=== PATIENT | female | born 1980 | race Caucasian/White ===

== ENCOUNTER → 2020-04-13 13:50 | Outpatient (BNVA) | payer OTHER, SELFPAY | PROVIDERS: Family Provider Family Medicine; PCP Family Medicine; Referring Provider Family Medicine; Visit Provider Specialist | DX: G56.01 Carpal tunnel syndrome, right upper limb (principal); R20.2 Paresthesia of skin | CPT/HCPCS: 95910 ==

== ENCOUNTER 2020-10-30 14:44 | Outpatient (CLI) | payer OTHER, SELFPAY ==
--- NOTE | 2020-10-30 14:51 | MM_ITS ---
WS: [id number] SCREENING DIGITAL MAMMOGRAM WITH CAD HISTORY: SCREENING COMPARISON: None available. Bilateral CC and MLO views submitted. Computer aided detection analyzed. Breast composition: There are scattered areas of fibroglandular density. Focal ill-defined asymmetry around 12:00 in the anterior RIGHT breast. Needs further evaluation. Otherwise no suspicious findings or calcifications. MM/[place] [id number] IMPRESSION: BI-RADS: 0-Incomplete: Need additional imaging evaluation FOLLOW UP: Need Additional Imaging RIGHT breast: Spot compression views (CC and MLO). True ML. Ultrasound to follo w if abnormality persists.
== END 2020-10-30 14:45 | disposition home or self-care (01) ==
LOC: RADSHAW 14:46
PROVIDERS: Family Provider Family Medicine; PCP Family Medicine; Visit Provider Family Medicine
DX: Z12.31 Encounter for screening mammogram for malignant neoplasm of breast (principal); N64.89 Other specified disorders of breast
CPT/HCPCS: 77067

== ENCOUNTER 2020-11-07 11:57 | Outpatient (CLI) | payer OTHER, SELFPAY ==
--- NOTE | 2020-11-07 12:00 | MM_ITS ---
WS: [id number] ADDITIONAL VIEWS RIGHT BREAST RIGHT breast ultrasound, limited HISTORY: ABNORMAL MAMMOGRAM COMPARISON: 10/30/2020 Compression views right CC and MLO projection. True ML also submitted. Mildly prominent asymmetry in the anterior RIGHT breast. No suspicious masses persist or distortion. RIGHT breast ultrasound, limited. Ultrasound directed to the areolar. There is no discrete mass identified, no shadowing, no cystic or solid changes. MM/[place] [id number] IMPRESSION: BI-RADS: 2-Benign FOLLOW-UP: 1 Year Follow-up
--- NOTE | 2020-11-07 12:07 | US_ITS ---
WS: [id number] ADDITIONAL VIEWS RIGHT BREAST RIGHT breast ultrasound, limited HISTORY: ABNORMAL MAMMOGRAM COMPARISON: 10/30/2020 Compression views right CC and MLO projection. True ML also submitted. Mildly prominent asymmetry in the anterior RIGHT breast. No suspicious masses persist or distortion. RIGHT breast ultrasound, limited. Ultrasound directed to the areolar. There is no discrete mass identified, no shadowing, no cystic or solid changes. US/US breast RT limited* [id number] IMPRESSION: BI-RADS: 2-Benign FOLLOW-UP: 1 Year Follow-up
== END 2020-11-07 11:58 | disposition home or self-care (01) ==
LOC: RADSHAW 11:58
PROVIDERS: Family Provider Family Medicine; PCP Family Medicine; Visit Provider Family Medicine
DX: R92.8 Other abnormal and inconclusive findings on diagnostic imaging of breast (principal)
CPT/HCPCS: 76642; 77065

== ENCOUNTER 2021-01-26 21:56 | Observation (INO) | payer OTHER, SELFPAY ==
[2021-01-26 22:03] VITALS: BP 116/80; PULSE 70; RESP 18; TEMP 36.8; O2SAT 98; BMI 26.9
--- NOTE | 2021-01-26 22:20 | XRR_ITS ---
PROCEDURE INFORMATION: Exam: XR Chest Exam date and time: 01/26/2021 10:22 PM Age: 40 years old Clinical indication: Chest pain; Additional info: Cp TECHNIQUE: Imaging protocol: XR of the chest. Views: 1 view. COMPARISON: No relevant prior studies available. FINDINGS: Lungs: The lungs are clear. Pleural spaces: Unremarkable. No pleural effusion. No pneumothorax. Heart/Mediastinum: Unremarkable. No cardiomegaly. Bones/joints: Unremarkable. XR/XR chest 1V portable [id number] IMPRESSION: No acute cardiopulmonary abnormality.
--- NOTE | 2021-01-26 22:20 | ECG_ITS ---
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
[2021-01-26] MEDS: aspirin 325 mg Tablet PO (22:26)
[2021-01-26] MEDS: ticagrelor 90 mg Tablet 180 MG PO (22:26)
[2021-01-26] MEDS: sodium chloride 0.9% 1,000 ML 999 ML IV (22:27)
[2021-01-26] MEDS: heparin 5,000 unit/mL INJ 1 mL 4000 UNIT IVP (22:27)
[2021-01-26 22:37] LABS: Basophils # 0.1 10^3/uL (0.0-0.1); Basophils % 0.5 %; Eosinophils # 0.2 10^3/uL (0.0-0.8); Eosinophils % 1.9 %; Hematocrit 40.6 % (37.0-47.0); Hemoglobin 13.6 g/dL (11.5-15.3); Lymphocytes # 2.3 10^3/uL (0.8-4.8); Lymphocytes % 24.6 %; Mean Corpuscular HGB Conc 33.5 g/dL (30.0-36.0); Mean Corpuscular Hemoglobin 28.8 pg (28.0-34.0); Mean Corpuscular Volume 85.8 fL (81-99); Mean Platelet Volume 11.1 fL (7.4-10.4); Monocytes # 0.8 10^3/uL (0.2-0.9); Monocytes % 8.3 %; Neutrophils # 6.09 10^3/uL (1.8-7.7); Neutrophils % 64.4 %; Nucleated Red Blood Cells % 0 %; Platelet Count 270 10^3/cmm (130-400); Red Blood Count 4.73 10^6/uL (4.1-5.3); Red Cell Distribution Width 11.7 % (12.1-15.1); White Blood Count 9.5 10^3/uL (4.0-10.0)
[2021-01-26 22:38] VITALS: BP 133/83; PULSE 99; RESP 17; O2SAT 97
[2021-01-26] MEDS: ondansetron 2 mg/ML SDV 2 mL 4 MG IVP (22:54)
[2021-01-26 22:57] VITALS: RESP 19; O2SAT 97
[2021-01-26] MEDS: morphine 4 mg/mL SDV 1 mL IVP (22:57)
--- NOTE | 2021-01-26 22:57 | XACV_ITS ---
Exam Room: [facility] Ht: 183 cm Wt: 73 kg BSA: 1.93 m2 Gender: Female : 1980 Exam Priority: Routine Procedure(s): Procedure Description: Diagnostic procedure Procedure Description: Left Heart Catheterization Diagnostic Cath Status: Emergency Diagnostic Findings * No disease noted in the Left Main, Left Anterior Descending, Right, or Circumflex coronary arteries. * Coronary angiography shows right dominance. PCI Status: Emergency Conclusions 1. Indication for 2. angiogram 3. acute coronary syndrome. 4. Possible stress-induced cardiomyopathy. 5. No disease noted in the Left Main, Left Anterior Descending, Right, or Circumflex coronary arteries. 6. The apex, mid posterior, mid septum, anterolateral, mid inferior mcnamara are hypokinetic. 7. All other visualized mcnamara normal. 8. Normal left ventricular systolic function. Ejection fraction of 50%. Recommendations * Continue current medical management and risk factor modification. Ventriculography Ejection Fraction: 50.0 % Left Ventriculography Findings: * Mild reduced LV function 50% with anterior apical and i inferoapical hypokinesis. Pressures Phase:Rest AO : / ( 37 ) @ 6:28:47 AM 207 / 82 ( 149 ) @ 6:28:47 AM 130 / 57 ( 99 ) @ 6:28:47 AM 137 / 52 ( 97 ) @ 6:28:47 AM LV : 153 / 8 / 23 @ 6:28:47 AM 156 / 7 / 19 @ 6:28:47 AM 156 / 48 / 79 @ 6:28:47 AM 164 / 9 / 33 @ 6:28:47 AM Valves Phase:DefaultPhase AV : 34.0 @ 11:28:47 AM AV Mean Gradient: 22.0 @ 11:28:47 AM Clinical Evaluation EBL: 5mL-10mL Procedural Details Procedure Consent Obtained. Admit Source: Emergency department. Identified patient by full name and date of as verbalized by the patient/guarantor. Does the consent match the physician's order: N/A Emergent. Accurate & Complete Informed Consent: N/A Emergent. Inpatient/Outpatient History & Physical on Chart: N/A Emergent. If H&P is completed, is and addenduem needed: N/A Emergent; If yes, is the addendum complete: N/A Emergent. The risks, benefits, and alternatives of sedation and/or procedure were discussed by physician. The patient agrees to continue. Procedure started. Physician arrived. IV Site on Arrival: 20 gauge in the right anticubital. IV Site on Arrival: 20 gauge in the left anticubital. IV Fluids: 0.9% NaCl at KVO. 0 mL infused prior to concrete laborer. Oxygen started at 2liters/min via nasal canula. right radial was prepped with chloroprep then draped in the usual sterile fashion. bilateral groins was prepped with chloroprep then draped in the usual sterile fashion. Baseline sample Acquired. HR: 108 BPM. Physician notified. Physician scrubbed in. Lidocaine 1% infiltrated to the right radial. Arterial access obtained. A 5 togolese TIG catheter in over wire. Wire removed. Hand injection through catheter performed. Catheter inserted over the glide wire. Multiple views taken of left coronary artery. Catheter redirected to the RCA. Catheter out. A 5 togolese Angled Pig catheter in over wire. EDP Sample taken: LV 153/8,23; HR: 106 BPM; SpO2: 93%. LV gram performed in COSBY @ 10 mL/second for a total of 30 mL. EDP Sample taken: LV 156/48,79; HR: 109 BPM; SpO2: 98%. Pullback taken: LV 164/9,33; AO 130/57(99); Mean: 22mmHg, Peak to Peak: 34mmHg, SEP: 29sec/min; HR: 108 BPM; SpO2: 98%. Catheter out. Patient family updated. Physician scrubbed out. TR band placed. Hemostasis obtained. A TR Band was successful obtaining hemostatsis at the Right Radial artery insertion site. PCI Indication: STEMI. Post-op diagnosis: STEMI. Complications: N/A. Estimated blood loss: 5mL-10mL. Procedure completed. Medication's Wasted: Nitro = 49.4 mg. Medication's Wasted: Heparin = 1000 units. Medication's Wasted: Lidocaine 1% = 18 mg. Total IV fluids: 27 mL. Post Procedure: Pulses reassessed and unchanged. [facility] Clinical Fraility Score: 3: Managing Well. Shale Planer Operator Indications: ACS <= 24 hours. Chest Pain Symptom Assessment: Atypical Angina. Cardiovascular Instability: No. Current diagnosis: NSTEMI. Patient transferred by bed to 1st floor. Vital chart was stopped. Access Site Site: Right Radial artery Sheath Size: 6 Fr Hemostasis Method: TR Band Hemostasis Success: Successful Procedure Medications Start: 11:11 PM Stop: 11:11 PM Medication: Versed Amount: 1 mg Route: I.V. Start: 11:11 PM Stop: 11:11 PM Medication: Fentanyl Amount: 50 mcg Start: 11:13 PM Medication: Brilinta Amount: 180 mg Route: P.O. Start: 11:13 PM Medication: Aspirin Amount: 325 mg Route: P.O. Start: 11:13 PM Medication: Heparin Amount: 4000 units Route: I.V. Start: 11:14 PM Stop: 11:14 PM Medication: Versed Amount: 1 mg Route: I.V. Start: 11:14 PM Stop: 11:14 PM Medication: Fentanyl Amount: 50 mcg Start: 11:16 PM Stop: 11:16 PM Medication: Nitrogylcerin Amount: 200 mcg Route: I.A. Start: 11:18 PM Stop: 11:18 PM Medication: Nitrogylcerin Amount: 400 mcg Route: I.A. I, the attending physician, have reviewed and verified all procedure medications. Yes, all medications given per verbal order History/Risk Factors Hypertension: No Dyslipidemia: No Peripheral Arterial Disease (PAD): No Myocardial Infarction (AK): No Obesity: No Renal Disease: No Prior Interventions PCI: No CABG: No Valve Surgery: No Report Signatures Finalized by Judy Baker MD on 02/06/2021 09:11 PM
[2021-01-26 22:58] LABS: Troponin(5th) Baseline 7 ng/L (0-10)
--- NOTE | 2021-01-26 23:00 | P.HP_ITS ---
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 Patient was sitting in the bed reading a book all of a sudden she started having chest pressure, When it did not relieve she decided to come to the ER. Twelve-lead EKG was suggestive of inferior lateral ST elevation. I was informed by capacitor pack press operator. I saw the patient immediately in the ER when I saw her chest pain has reduced from 8/10 to 2 out of 10. She is a non-smoker nondiabetic denies any recreational drug abuse. She denies more than usual stress. She denies any viral illnesses. Character of the chest pain was more crushing. Medications/Allergies Home Medications Medication Instructions Recorded Confirmed Last Taken Type citalopram 10 mg tablet 10 mg PO DAILY 11/08/19 01/27/21 01/26/21 08:00 History Allergies Allergy/AdvReac Type Severity Reaction Status Date / Time No Known Allergies Allergy Verified 04/13/20 13:58 PFSH Acute PFSH: Social History Smoking and tobacco status: never smoked Alcohol intake: never Vitals/I&O/Wt Last Vital Signs Temp 98.2 F 01/26/21 22:03 Pulse 99 01/26/21 22:38 Resp 19 H 01/26/21 22:57 BP 133/83 01/26/21 22:38 Pulse Ox 97 01/26/21 22:57 Weight last 48 hrs Weight 162 lb Physical Exam Narrative: EXAM NARRATIVE: GENERAL: Patient is alert, awake and oriented x3. NECK: No jugular vein distension. HEENT: No cyanosis. No icterus. No pallor. HEART: Regular S1 and S2. No murmur, rub or gallop. LUNGS: Clear to auscultate bilaterally. ABDOMEN: Soft, nontender and nondistended. Positive bowel sounds. No guarding, rebound or tenderness. CENTRAL NERVOUS SYSTEM: Grossly nonfocal. EXTREMITIES: Lower extremities without edema bilaterally. Data : 01/27/21 02:20 01/27/21 02:20 A&P Assessment and plan (1) ST elevation ND (STEMI): Patient does not have many risk factors for coronary artery disease she is non-smoker nondiabetic however chest pain and significant ST changes inferolaterally requires further exploration with coronary angiogram. Most likely differential diagnosis will be stress-induced cardiomyopathy versus pericarditis. I have been discussed with the patient and her in detail all risk benefit and alternative for the procedure. I explained the risk for major minor bleed, urgent emergent bypass surgery, stroke, arrhythmia, . Patient understood risk like to proceed with it. Status: Acute Qualifiers: Involved coronary artery: unspecified coronary artery Qualified Code(s): I21.3 - ST elevation (STEMI) myocardial infarction of unspecified site Attestations Medical Necessity Statement*: I am not expecting her stay to cross more than 1 midnight Coding Level of Care Code New Pt Acute Information Technology Architect for Stefani Fwpablito Patient Type New Medical Decision Making Moderate Complexity Diagnoses ST elevation ND (STEMI) I21.3 Involved coronary artery: unspecified coronary artery
[2021-01-26 23:03] VITALS: BP 150/95; PULSE 98; RESP 19; TEMP 36.8; O2SAT 97
[2021-01-26 23:03] LABS: Alanine Aminotransferase 34 U/L (0-33); Albumin Level 4.3 g/dL (3.5-5.2); Alkaline Phosphatase 86 IU/L (35-105); Anion Gap 10.7 (5-19); Aspartate Amino Transferase 24 U/L (0-32); Blood Urea Nitrogen 17 mg/dL (6-20); Calcium 9.2 mg/dL (8.5-10.5); Carbon Dioxide 29 mmol/L (22-29); Chloride 103 mmol/L (98-107); Creatine Phosphokinase 101 U/L (26-192); Creatinine Clr Calc Pharmacy 92.9051; Globulin 2.6 g/dL (1.3-4.6); Glucose 161 mg/dL (65-115); NT Pro B Type Natriuretic Pept 17 pg/mL (0-125); Osmolality Calculated 293 mOsm/kg (285-295); Potassium 3.7 mmol/L (3.5-5.1); Sodium 139 mmol/L (136-145); Total Bilirubin 0.3 mg/dL (0.15-1.2); Total Protein 6.9 g/dL (6.6-8.7)
[2021-01-26 23:18] LABS: INR 1.03 (0.8-1.2)
[2021-01-26 23:33] VITALS: PULSE 84
[2021-01-26 23:41] LABS: Partial Thromboplastin Time 167.6 SECONDS (23.9-36.7)
[2021-01-26 23:50] VITALS: BP 140/92; PULSE 108; RESP 21; O2SAT 98
--- NOTE | 2021-01-26 23:50 | PC.NURSE ---
Patient to room 102 in CSU via wheelchair. Pt placed on analysis tester. Pt denies any complaints at this time.
[2021-01-27] VITALS (26 sets, daily range): BP systolic 107–140; BP diastolic 69–92; PULSE 67–100; RESP 0–24; TEMP 36.7–36.8; O2SAT 97–99
[2021-01-27] MEDS: metoprolol succinate ER (24 HR) 25 mg Tablet PO ×2 (00:17→08:55)
--- NOTE | 2021-01-27 00:20 | ECG_ITS ---
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1980 Requested By: Chas Pena Order Number: [id number] Reading MD: VICENTE SUAREZ Measurements Intervals [place] Rate: 93 P: 66 SD: 193 QRS: 45 QRSD: 81 T: 15 QT: 334 QTc: 417 Interpretive Statements SINUS RHYTHM POSSIBLE LEFT ATRIAL ENLARGEMENT [-0.1mV P WAVE IN V1/V2] MARKED ST ELEVATION, CONSIDER INFERIOR INJURY [MARKED ST ELEVATION W/O NORMALLY INFLECTED T WAVE IN II/aVF] ACUTE W[place] Compared to ECG 01/26/2021 22:11:33 No significant changes Electronically Signed On 01-28-2021 22:30:06 CDT by VICENTE SUAREZ [id number]
[2021-01-27 02:46] LABS: Basophils % 0.3 %; Eosinophils % 0.1 %; Hematocrit 41.2 % (37.0-47.0); Hemoglobin 13.5 g/dL (11.5-15.3); Lymphocytes # 0.9 10^3/uL (0.8-4.8); Lymphocytes % 7.3 %; Mean Corpuscular HGB Conc 32.8 g/dL (30.0-36.0); Mean Corpuscular Volume 88.4 fL (81-99); Mean Platelet Volume 10.9 fL (7.4-10.4); Monocytes # 0.4 10^3/uL (0.2-0.9); Monocytes % 3.2 %; Neutrophils # 10.39 10^3/uL (1.8-7.7); Neutrophils % 88.8 %; Nucleated Red Blood Cells % 0 %; Platelet Count 261 10^3/cmm (130-400); Red Blood Count 4.66 10^6/uL (4.1-5.3); Red Cell Distribution Width 11.9 % (12.1-15.1); White Blood Count 11.7 10^3/uL (4.0-10.0)
[2021-01-27 03:02] LABS: Blood Urea Nitrogen 16 mg/dL (6-20); Calcium 8.7 mg/dL (8.5-10.5); Carbon Dioxide 23 mmol/L (22-29); Chloride 107 mmol/L (98-107); Glomerular Filtration Rate 110.2 mL/min (90-130); Glucose 122 mg/dL (65-115); Osmolality Calculated 288 mOsm/kg (285-295); Sodium 138 mmol/L (136-145)
[2021-01-27 03:28] LABS: Troponin 5 2HR 510.9 ng/L (0-10); Troponin 5 2HR Delta 503.9 ABS# (0-10)
--- NOTE | 2021-01-27 04:20 | ECG_ITS ---
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: : 1980 Requested By: Chas Pena Order Number: [id number] Reading MD: VICENTE SUAREZ Measurements Intervals [place] Rate: 76 P: 67 NH: 189 QRS: 22 QRSD: 93 T: 16 QT: 363 QTc: 408 Interpretive Statements SINUS RHYTHM POSSIBLE LEFT ATRIAL ENLARGEMENT [-0.1mV P WAVE IN V1/V2] LOW QRS VOLTAGE IN PRECORDIAL LEADS [QRS DEFLECTION < 1.0 mV IN CHEST LEADS] Compared to ECG 01/27/2021 00:07:51 Low QRS voltage now present ST (T wave) deviation no longer present Myocardial infarct finding no longer present Electronically Signed On 01-28-2021 22:30:04 CDT by VICENTE SUAREZ [id number]
[2021-01-27 06:22] LABS: Troponin 5 6HR 854.7 ng/L (0-10)
--- NOTE | 2021-01-27 06:22 | W.ED.CHESTPA ---
HPI - Chest Pain General: Chief Complaint: Chest Pain Stated Complaint: CHEST PAINS NAUSEA/VOMITING Time Seen by Provider: 01/26/21 22:20 History of Present Illness: HPI narrative: This is a healthy 40-year-old female patient who was at home with her . She was reading in bed, and suddenly got a significant chest pressure in her chest. This did not seem to go away with changing position, etc. When the pain persisted, she decided to take aspirin, and came to the emergency room. Her pain is significantly improved on arrival, but she is still experiencing some chest discomfort. At home, she vomited twice, and was diaphoretic. She was mildly short of breath. These other symptoms have resolved MD complaint: chest discomfort Onset (ago): minute(s) Timing of current episode: constant Prior episodes: No Onset: during rest Pain location: substernal Pain radiation: none Quality: tightness and heaviness Relieving factors: nothing Exacerbating factors: nothing Associated symptoms: Reports diaphoresis, dyspnea, nausea and vomiting; Deny abdominal pain, fever(s), leg edema or syncope Treatment prior to arrival: aspirin Review of Systems Const: Reports: diaphoresis; Denies: fever(s) Eyes: Denies: change in vision ENMT: Denies: odynophagia or swelling of lips/tongue Card: Reports: chest pain; Denies: edema or syncope Resp: Reports: dyspnea; Denies: productive cough or wheezing GI: Reports: nausea and vomiting; Denies: abdominal pain : Denies: dysuria, urinary frequency, urinary urgency or hematuria Musc: Denies: back pain or joint warmth Skin/Breast: Denies: rash or erythema Neuro: Denies: headache(s), dizziness or vertigo Psych: Denies: anxiety PFSH ED PFSH: Social History Smoking and tobacco status: never smoked Alcohol intake: never Physical Exam Const: GENERAL APPEARANCE: well developed ORIENTATION/CONSCIOUSNESS: Yes oriented to person, Yes oriented to place and Yes oriented to time HENMT: COMMON NORMALS: normocephalic, external ears normal and Normal external nose present HEAD & SCALP: normocephalic FACE & SINUS: normal facial exam NOSE: Normal external nose present and No nasal discharge present EXTERNAL EAR: Yes external ears normal Eye: COMMON NORMALS: Equal, round and reactive pupils present, EOMs intact bilaterally and conjunctivae normal EYELID: eyelids normal CONJUNCTIVA: Yes conjunctivae normal PUPIL: Yes Equal, round and reactive pupils present Neck/C-Spine: GENERAL: No tracheal deviation Chest: COMMONS NORMALS: normal inspection of the chest CHEST: No tenderness Resp: COMMON NORMALS: clear to auscultation bilaterally EFFORT & INSPECTION: No tachypneic, No respiratory distress, No retractions, No uses accessory muscles and No tracheal deviation AUSCULTATION: clear to auscultation bilaterally, no rhonchi, no wheezes and lung sounds not diminished Cardio: COMMON NORMALS: regular rate and regular rhythm RATE: regular rate RHYTHM: regular rhythm HEART SOUNDS: no murmurs PERIPHERAL PULSES: radial pulses present GI: INSPECTION: No abdominal distension AUSCULTATION: No Hyperactive bowel sounds present and No Hypoactive bowel sounds present PALPATION: No Guarding due to palpation present (GI) and No Rigid due to palpation PERCUSSION: no dullness to percussion and no tympanic to percussion Neuro: SENSORIUM/ORIENTATION: Yes oriented to person, Yes oriented to place and Yes oriented to time Psych: COMMON NORMALS: mental status grossly normal Skin: COMMON NORMALS: no rashes or lesions noted GENERAL SKIN EXAM: no rashes or lesions noted Course Consultations: Consultation #1: naila Vital Signs: Vital signs: Vital Signs Temperature 98.2 F 01/27/21 02:53 Pulse Rate 71 01/27/21 05:37 Respiratory Rate 12 01/27/21 04:45 Blood Pressure 107/74 01/27/21 04:45 Pulse Oximetry 97 01/27/21 02:53 MDM - Chest Pain MDM Narrative: Medical decision making narrative: 40-year-old female presents with chest pain. EKG in triage revealed significant ST elevation in 2 3 aVF and then the lateral precordial leads. Cardiology was consulted by phone as STEMI alert was called. He viewed the EKG, heard the patient's symptoms, and agreed. He came to evaluate the patient and took her to the Continuous Dryout Operator Helper. She remained stable. Nitroglycerin was not given, as her changes were inferior. She was given 4000 of heparin and 180 mg Brilinta. She had received aspirin at home. Lab Data: Labs: Lab Results 01/26/21 01/26/21 01/26/21 Range/Units 22:30 22:30 22:30 WBC 9.5 (4.0-10.0) 10^3/ uL RBC 4.73 (4.1-5.3) 10^6/u L Hgb 13.6 (11.5-15.3) g/dL Hct 40.6 (37.0-47.0) % MCV 85.8 (81-99) fL MCH 28.8 (28.0-34.0) pg MCHC 33.5 (30.0-36.0) g/dL RDW 11.7 L (12.1-15.1) % Plt Count 270 (130-400) 10^3/c mm MPV 11.1 H (7.4-10.4) fL Neut % (Auto) 64.4 % Lymph % (Auto) 24.6 % Redwood % (Auto) 8.3 % Eos % (Auto) 1.9 % Baso % (Auto) 0.5 % Neut # (Auto) 6.09 (1.8-7.7) 10^3/u L Lymph # (Auto) 2.3 (0.8-4.8) 10^3/u L Redwood # (Auto) 0.8 (0.2-0.9) 10^3/u L Eos # (Auto) 0.2 (0.0-0.8) 10^3/u L Baso # (Auto) 0.1 (0.0-0.1) 10^3/u L Nucleated RBC % (a uto) 0 % Nucleated RBCs # 0.0 /100WBC PT (12.1-14.9) SECO NDS INR (0.8-1.2) APTT (23.9-36.7) SECO NDS Sodium 139 (136-145) mmol/L Potassium 3.7 (3.5-5.1) mmol/L Chloride 103 (98-107) mmol/L Carbon Dioxide 29 (22-29) mmol/L Anion Gap 10.7 (5-19) BUN 17 (6-20) mg/dL Creatinine 0.8 (0.5-0.9) mg/dL GFR Calculation 79.0 L (90-130) mL/min Glucose 161 H (65-115) mg/dL Calculated Osmolal ity 293 (285-295) mOsm/k g Calcium 9.2 (8.5-10.5) mg/dL Total Bilirubin 0.3 (0.15-1.2) mg/dL AST 24 (0-32) U/L ALT 34 H (0-33) U/L Alkaline Phosphata se 86 (35-105) IU/L Creatine Kinase 101 (26-192) U/L Troponin T Baselin e 7 (0-10) ng/L NT-Pro-B Natriuret Pep 17 (0-125) pg/mL Total Protein 6.9 (6.6-8.7) g/dL Albumin 4.3 (3.5-5.2) g/dL Globulin 2.6 (1.3-4.6) g/dL 01/26/21 Range/Units 22:50 WBC (4.0-10.0) 10^3/ uL RBC (4.1-5.3) 10^6/u L Hgb (11.5-15.3) g/dL Hct (37.0-47.0) % MCV (81-99) fL MCH (28.0-34.0) pg MCHC (30.0-36.0) g/dL RDW (12.1-15.1) % Plt Count (130-400) 10^3/c mm MPV (7.4-10.4) fL Neut % (Auto) % Lymph % (Auto) % Redwood % (Auto) % Eos % (Auto) % Baso % (Auto) % Neut # (Auto) (1.8-7.7) 10^3/u L Lymph # (Auto) (0.8-4.8) 10^3/u L Redwood # (Auto) (0.2-0.9) 10^3/u L Eos # (Auto) (0.0-0.8) 10^3/u L Baso # (Auto) (0.0-0.1) 10^3/u L Nucleated RBC % (a uto) % Nucleated RBCs # /100WBC PT 13.90 (12.1-14.9) SECO NDS INR 1.03 (0.8-1.2) APTT 167.6 H* (23.9-36.7) SECO NDS Sodium (136-145) mmol/L Potassium (3.5-5.1) mmol/L Chloride (98-107) mmol/L Carbon Dioxide (22-29) mmol/L Anion Gap (5-19) BUN (6-20) mg/dL Creatinine (0.5-0.9) mg/dL GFR Calculation (90-130) mL/min Glucose (65-115) mg/dL Calculated Osmolal ity (285-295) mOsm/k g Calcium (8.5-10.5) mg/dL Total Bilirubin (0.15-1.2) mg/dL AST (0-32) U/L ALT (0-33) U/L Alkaline Phosphata se (35-105) IU/L Creatine Kinase (26-192) U/L Troponin T Baselin e (0-10) ng/L NT-Pro-B Natriuret Pep (0-125) pg/mL Total Protein (6.6-8.7) g/dL Albumin (3.5-5.2) g/dL Globulin (1.3-4.6) g/dL Critical Care Time Critical Care Time: Critical Care Time: Yes Total Critical Care Time: 35 Attestation: This case had a high probability of a clinically significant, sudden, or life threatening deterioration of this patient's condition which required my full and direct attention, intervention and personal management. Discharge Plan Discharge Patient Disposition: Admitted As Inpatient Admit Provider: Judy Baker Clinical Impression: ST elevation DC (STEMI) Qualifiers: Involved coronary artery: right coronary artery Qualified Code(s): I21.11 - ST elevation (STEMI) myocardial infarction involving right coronary artery Condition: Stable Coding Level of Care Code ED Line Crew Supervisor for [facility] Fwd Exam Comprehensive
[2021-01-27 06:23] LABS: Troponin 5 6HR Delta 847.7 ng/L (0-12)
[2021-01-27] MEDS: aspirin 81 mg EC Tablet PO (08:55)
[2021-01-27] MEDS: isosorbide mononitrate 20 mg Tablet PO (08:55)
[2021-01-27] MEDS: ticagrelor 90 mg Tablet PO (08:56)
--- NOTE | 2021-01-27 12:16 | USCV_ITS ---
Elvia Garcia Age: 40 Gender: F : 1980 Exam Date: 01/27/2021 09:38 Ordering Phys: Judy Baker MD ([email or web address]) Technologist: Cira Rodas Exam Location: [facility] [place] Indication: Stress induced cardiomyopathy, LV dysfunction BP: 119 / 88 HR: 76 Rhythm: Sinus Technical Quality: Fair MEASUREMENTS (Male / Female) Normal Values 2D ECHO LV Diastolic Diameter PLAX 3.3 cm 4.2 - 5.9 / 3.9 - 5.3 cm LV Systolic Diameter PLAX 2.3 cm LV Chamber Size 3.9 cm IVS Diastolic Thickness 1.4 cm 0.6 - 1.0 / 0.6 - 0.9 cm IVS Systolic Thickness 1.7 cm LVPW Diastolic Thickness 1.1 cm 0.6 - 1.0 / 0.6 - 0.9 cm LVPW Systolic Thickness 1.4 cm RV Chamber Size 1.7 cm LVOT Diameter 1.8 cm LV Ejection Fraction 2D Teich 58.8 % LV Ejection Fraction MOD 2C 74.7 % LV Ejection Fraction 2C AL 80.0 % LA Diameter 2.0 cm LA Width 2.3 cm LA Height 4.2 cm RA Width 2.2 cm RA Height 3.8 cm Aorta at Sinotubular Diameter 2.4 cm M-MODE LV Diastolic Diameter MM 4.3 cm 4.2 - 5.9 / 3.9 - 5.3 cm LV Systolic Diameter MM 2.6 cm LV Ejection Fraction MM Teich 70.1 % IVS Diastolic Thickness MM 0.7 cm 0.6 - 1.0 / 0.6 - 0.9 cm IVS Systolic Thickness MM 1.0 cm LVPW Diastolic Thickness MM 1.3 cm 0.6 - 1.0 / 0.6 - 0.9 cm LVPW Systolic Thickness MM 1.6 cm RV Diastolic Diameter MM 0.9 cm Aortic Annulus Diameter 2.5 cm LA Ao Ratio MM 1.1 MV E Point Septal Separation 0.2 cm DOPPLER AV Peak Velocity 124.0 cm/s LVOT Peak Velocity 96.0 cm/s AV Area Cont Eq vti 2.1 cm squared AV Area Cont Eq pk 2.1 cm squared MV Area PHT 3.3 cm squared Mitral E to A Ratio 0.7 MV E' Velocity 41.0 cm/s Mitral E to MV E' Ratio 6.7 Mitral E to LV E' Lateral Ratio 5.9 Mitral E to LV E' Septal Ratio 7.8 TV Peak E Velocity 49.0 cm/s Right Atrial Pressure 3.0 mmHg PV Peak Velocity 80.0 cm/s RV Acceleration Time 0.1 s RV Ejection Time 0.3 s RV AcT/ET 0.5 FINDINGS Left Ventricle Normal left ventricular cavity size. Normal left ventricular systolic function. No regional wall motion abnormalities. Left ventricular ejection fraction is estimated at 65 %. Normal diastolic function. Right Ventricle The right ventricle is normal in size and function. Right Atrium The right atrium is normal in size. Left Atrium The left atrium is normal in size. Mitral Valve Structurally normal mitral valve without significant stenosis or prolapse. There is no mitral regurgitation. Aortic Valve Structurally normal aortic valve without significant sclerosis or stenosis. There is no aortic regurgitation. Tricuspid Valve Structurally normal tricuspid valve without significant stenosis or regurgitation. Pulmonary artery systolic pressure is normal. Pulmonic Valve Structurally normal pulmonic valve without significant stenosis. There is no pulmonic regurgitation. Pericardium Normal pericardium without effusion. Aorta Normal ascending aorta dimension. CONCLUSIONS 1-Normal left ventricular cavity size. Normal left ventricular systolic function. No regional wall motion abnormalities. Left ventricular ejection fraction is estimated at 65 %. Normal diastolic function. 2-There is no pericardial effusion. 3-No significant valve abnormalities. 4-Pulmonary artery systolic pressure is within normal limits. 5-Right atrial pressure is around 5 mm of mercury. 6-There are no prior echocardiogram studies to compare. Judy Baker MD (Electronically Signed) Final Date: 27 Jan 2021 18:44 S
--- NOTE | 2021-01-27 13:59 | P.DS_ITS ---
Discharge Providers Date of Admission: 01/27/21 00:12 Date of Discharge: January 27, 2021 Attending Provider at Admission: Judy Baker MD Attending Provider at Discharge: Judy Baker MD Primary Care Provider: Navid Sarabia MD Diagnoses at Discharge Discharge Diagnosis (1) ST elevation NM (STEMI): Status: Acute Qualifiers: Involved coronary artery: right coronary artery Qualified Code(s): I21.11 - ST elevation (STEMI) myocardial infarction involving right coronary artery Reason for Visit Reason for Visit: CHEST PAINS NAUSEA/VOMITING Hospital Course Hospital Course 40-year-old female past medical history not significant for any major medical problem except anxiety/depression on citalopram presented with chest pain and ST elevation myocardial infarction. He was taken to the [facility] immediately. She was noted to have normal coronaries. Left ventriculogram was performed ejection fraction appeared to be 45% with apical ballooning suggestive of stress-induced cardiomyopathy. Post left heart cath patient did fine from a cardiovascular perspective. Her medication was optimized. She was given a education for stress-induced cardiomyopathy.. She has been explained regarding diet habits and lifestyle modification. She has been started on optimal medical management. Overall she is tolerating the medicine. She would like to go home right wrist looks good physical examination is stable. We will discharge her today. Physical Exam Narrative: EXAM NARRATIVE: GENERAL: Patient is alert, awake and oriented x3. NECK: No jugular vein distension. HEENT: No cyanosis. No icterus. No pallor. HEART: Regular S1 and S2. No murmur, rub or gallop. LUNGS: Clear to auscultate bilaterally. ABDOMEN: Soft, nontender and nondistended. Positive bowel sounds. No guarding, rebound or tenderness. CENTRAL NERVOUS SYSTEM: Grossly nonfocal. EXTREMITIES: Lower extremities without edema bilaterally. 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 Stat Exams 01/26/21 22:57 Ordered CV echo complete* [id number] Routine Ultrasound 01/27/21 12:16 Taken Labs from last 24 hours 01/27/21 01/27/21 01/27/21 04:30 02:20 02:20 WBC 11.7 H RBC 4.66 Hgb 13.5 Hct 41.2 MCV 88.4 MCH 29.0 MCHC 32.8 RDW 11.9 L Plt Count 261 MPV 10.9 H Neut % (Auto) 88.8 Lymph % (Auto) 7.3 [place] % (Auto) 3.2 Eos % (Auto) 0.1 Baso % (Auto) 0.3 Neut # (Auto) 10.39 H Lymph # (Auto) 0.9 [place] # (Auto) 0.4 Eos # (Auto) 0.0 Baso # (Auto) 0.0 Nucleated RBC % (a uto) 0 Nucleated RBCs # 0.0 PT INR APTT Sodium 138 Potassium 4.0 Chloride 107 Carbon Dioxide 23 Anion Gap 12.0 BUN 16 Creatinine 0.6 GFR Calculation 110.2 Glucose 122 H Calculated Osmolal ity 288 Calcium 8.7 Total Bilirubin AST ALT Alkaline Phosphata se Creatine Kinase Troponin T Baselin e Troponin T 120 Min [place] Delta Troponin T Troponin T Hi Sens 6Hr 854.7 H Troponin T Hi Sens 6Hr Delta 847.7 H* NT-Pro-B Natriuret Pep Total Protein Albumin Globulin 01/27/21 01/26/21 01/26/21 02:20 22:50 22:30 WBC RBC Hgb Hct MCV MCH MCHC RDW Plt Count MPV Neut % (Auto) Lymph % (Auto) [place] % (Auto) Eos % (Auto) Baso % (Auto) Neut # (Auto) Lymph # (Auto) [place] # (Auto) Eos # (Auto) Baso # (Auto) Nucleated RBC % (a uto) Nucleated RBCs # PT 13.90 INR 1.03 APTT 167.6 H* Sodium Potassium Chloride Carbon Dioxide Anion Gap BUN Creatinine GFR Calculation Glucose Calculated Osmolal ity Calcium Total Bilirubin AST ALT Alkaline Phosphata se Creatine Kinase Troponin T Baselin e 7 Troponin T 120 Min [place] 510.9 H Delta Troponin T 503.9 H* Troponin T Hi Sens 6Hr Troponin T Hi Sens 6Hr Delta NT-Pro-B Natriuret Pep Total Protein Albumin Globulin 01/26/21 01/26/21 22:30 22:30 WBC 9.5 RBC 4.73 Hgb 13.6 Hct 40.6 MCV 85.8 MCH 28.8 MCHC 33.5 RDW 11.7 L Plt Count 270 MPV 11.1 H Neut % (Auto) 64.4 Lymph % (Auto) 24.6 [place] % (Auto) 8.3 Eos % (Auto) 1.9 Baso % (Auto) 0.5 Neut # (Auto) 6.09 Lymph # (Auto) 2.3 [place] # (Auto) 0.8 Eos # (Auto) 0.2 Baso # (Auto) 0.1 Nucleated RBC % (a uto) 0 Nucleated RBCs # 0.0 PT INR APTT Sodium 139 Potassium 3.7 Chloride 103 Carbon Dioxide 29 Anion Gap 10.7 BUN 17 Creatinine 0.8 GFR Calculation 79.0 L Glucose 161 H Calculated Osmolal ity 293 Calcium 9.2 Total Bilirubin 0.3 AST 24 ALT 34 H Alkaline Phosphata se 86 Creatine Kinase 101 Troponin T Baselin e Troponin T 120 Min [place] Troponin T Troponin T Hi Sens 6Hr Troponin T Hi Sens 6Hr Delta NT-Pro-B Natriuret Pep 17 Total Protein 6.9 Albumin 4.3 Globulin 2.6 Vitals: Last Vital Signs Temp 98.1 F 01/27/21 10:56 Pulse 83 01/27/21 10:56 Resp 22 H 01/27/21 10:56 BP 123/69 01/27/21 10:56 Pulse Ox 99 01/27/21 10:56 Discharge Plan Discharge Patient Disposition: Home Condition: Stable Prescriptions: New isosorbide mononitrate 20 mg Tablet 20 mg PO BID Qty: 60 RF: 3 metoprolol succinate 25 mg Tablet Extended Release 24 Hr 25 mg PO DAILY Qty: 30 RF: 4 atorvastatin 10 mg tablet 10 mg PO DAILY Qty: 30 RF: 4 lisinopril 2.5 mg tablet 2.5 mg PO DAILY Qty: 30 RF: 3 clopidogrel 75 mg tablet 75 mg PO DAILY Qty: 90 RF: 3 aspirin 81 mg Tablet,Delayed Release (Dr/Ec) 81 mg PO DAILY Qty: 90 RF: 3 Continued citalopram 10 mg tablet 10 mg PO DAILY RF: 0 Discharge Orders: Discharge Order (Routine); Ordered 01/27/21 Ordered By: Judy Baker Referrals: Judy Baker MD [Physician] - Loren Alford FNP [Nurse Practitioner] - Navid Sarabia MD [Primary Care Provider] - Discharge Diet: Cardiac Discharge Activity: Increase activity as tolerated Patient Instructions: Metoprolol (By mouth), Lisinopril (By mouth), Aspirin (By mouth), Isosorbide Mononitrate (By mouth), Atorvastatin (By mouth), Clopidogrel (By mouth) Activity Restrictions/Additional Instructions: Follow-up with Loren Alford in 7 days. Follow-up with Dr. Baker in 3 months, follow-up with Dr. Sarabia as scheduled Discharge Attestations Time Spent in Discharge Care*: greater than 30 min Specific Discharge Activities: educating patient and educating and/or supporting family/caregiver Quality Metrics Clinical Quality Measures During this hospital stay, did patient experience: AMI Clinical Trial Participant: No Contraindication to aspirin (AMI): Aspirin given Contraindication to statin: Statin prescribed Contraindication to PCI: Procedure not indicated Coding Level of Care Code Acute [facility] note Diagnoses ST elevation NM (STEMI) I21.11 Involved coronary artery: right coronary artery
== END 2021-01-27 15:08 | disposition home or self-care (01) ==
LOC: ER 22:44 → CCL 23:04 → CSU 23:58
PROVIDERS: Admitting Provider Internal Medicine Cardiovascular Disease; Emergency Provider Emergency Medicine; PCP Family Medicine; Visit Provider Internal Medicine Cardiovascular Disease
DX: I21.11 ST elevation (STEMI) myocardial infarction involving right coronary artery (principal)
CPT/HCPCS: 36415; 71045; 80048; 80053; 82550; 83880; 84484; 85025; 85610; 85730; 93005; 93306; 93452; 96361; 96374; 96375; 99285; C1769; C1887; C1894; G0378; J1644; J2250; J2270; J2405; J3010; J3490; J7030; Q9967

== ENCOUNTER 2021-01-30 13:31 | Outpatient (CLI) | payer OTHER, SELFPAY ==
--- NOTE | 2021-01-30 13:35 | NM_ITS ---
WS: [id number] NUCLEAR MEDICINE LUNG VENTILATION AND PERFUSION CLINICAL INFORMATION: DYSPNEA/ATYPICAL CHEST PAIN TECHNIQUE: Ventilation/perfusion lung scan with 32.1 mCi technetium 99m DTPA. 5.4 mCi technetium 99m MAA COMPARISON: None. FINDINGS: Chest radiograph reviewed. Both lungs are well aerated. No acute pulmonary infiltrates. Normal symmetric radiotracer activity on the perfusion images. Normal symmetric activity on the venti lation images. Radiotracer activity is seen in the stomach. No evidence of mismatched ventilation/per fusion defect to suggest pulmonary embolus. NM/NM pul vent and perfus* [id number] IMPRESSION: 1. Low probability for pulmonary embolus.
--- NOTE | 2021-01-30 13:38 | XR_ITS ---
WS: [id number] PROCEDURE: XR chest 2V* [id number] CLINICAL INFORMATION: DYSPNEA/ATYPICAL CHEST PAIN COMPARISON: January 26, 2021 FINDINGS: Heart: Normal cardiac silhouette. Lungs: Lungs are clear. No consolidation or pleural fluid. No acute pulmonary infiltrates. Bones: Mild thoracic kyphosis. Mild chronic anterior wedging thoracolumbar junction XR/XR chest 2V* [id number] IMPRESSION: Normal chest
== END 2021-01-30 13:32 | disposition home or self-care (01) ==
LOC: RAD 13:34
PROVIDERS: PCP Family Medicine; Visit Provider Family Medicine
DX: R06.00 Dyspnea, unspecified (principal); R07.89 Other chest pain
CPT/HCPCS: 71046; 78014; A9540; A9567

== ENCOUNTER → 2021-02-01 13:49 | Outpatient (BNVA) | payer OTHER, SELFPAY | PROVIDERS: PCP Family Medicine; Visit Provider Nurse Practitioner Family | DX: I51.81 Takotsubo syndrome (principal); Z13.220 Encounter for screening for lipoid disorders | CPT/HCPCS: 80048 ==

== ENCOUNTER 2021-04-16 07:06 | Outpatient (CLI) | payer OTHER, SELFPAY ==
--- NOTE | 2021-04-16 07:10 | USCV_ITS ---
Elvia Garcia Age: 41 Gender: F : 1980 Exam Date: 04/16/2021 07:29 Ordering Phys: Navid Sarabia MD Technologist: Exam Location: [facility] [place] Indication: ? PERICARDITIS BP: 125 / 72 HR: 77 Rhythm: Sinus Technical Quality: Good MEASUREMENTS (Male / Female) Normal Values 2D ECHO LV Diastolic Diameter PLAX 3.1 cm 4.2 - 5.9 / 3.9 - 5.3 cm LV Systolic Diameter PLAX 2.1 cm IVS Diastolic Thickness 0.9 cm 0.6 - 1.0 / 0.6 - 0.9 cm IVS Systolic Thickness 1.3 cm LVPW Diastolic Thickness 1.1 cm 0.6 - 1.0 / 0.6 - 0.9 cm LVPW Systolic Thickness 1.3 cm LVOT Diameter 2.0 cm LV Ejection Fraction 2D Teich 61.1 % LV Ejection Fraction MOD 2C 72.4 % LV Ejection Fraction 2C AL 73.1 % LA Diameter 3.0 cm LA Width 2.9 cm LA Height 4.6 cm RA Width 2.7 cm RA Height 4.6 cm Aorta at Sinotubular Diameter 2.4 cm FINDINGS Left Ventricle Normal left ventricular size, systolic function and increased wall thickness, with no regional wall motion abnormalities. Left ventricular ejection fraction is estimated at 70 %. Right Ventricle Normal right ventricle size and systolic function. Right Atrium Normal right atrial size. Left Atrium Normal left atrial size. Mitral Valve Structurally normal mitral valve. Trace mitral valve regurgitation. Aortic Valve Aortic valve not well visualized. Tricuspid Valve Structurally normal tricuspid valve. Pulmonic Valve Structurally normal pulmonic valve. Pericardium No pericardial effusion. Aorta Normal-sized aortic root. CONCLUSIONS 1. This is a limited echocardiogram. 2. Normal left ventricular size, systolic function and increased wall thickness, with no regional wall motion abnormalities. Left ventricular ejection fraction is estimated at 70 %. 3. Normal right ventricle size and systolic function. 4. Valves grossly appear normal however complete evaluation of valves was not done. 5. No pericardial effusion. 6. No significant change when compared to previous echocardiogram dated 01/27/2021. Emilie Purcell MD (Electronically Signed) Final Date: 16 April 2021 12:22 S
== END 2021-04-16 07:07 | disposition home or self-care (01) ==
PROVIDERS: PCP Family Medicine; Visit Provider Family Medicine
DX: I31.9 Disease of pericardium, unspecified (principal)
CPT/HCPCS: 93308

== ENCOUNTER 2021-07-25 18:02 | Emergency (ER) | payer OTHER, SELFPAY ==
--- NOTE | 2021-07-25 18:05 | ECG_ITS ---
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 Measurements Intervals [place] Rate: 83 P: 55 RI: 188 QRS: 22 QRSD: 66 T: 11 QT: 330 QTc: 389 Interpretive Statements SINUS RHYTHM POSSIBLE LEFT ATRIAL ENLARGEMENT [-0.1mV P-WAVE IN V1/V2] ANTERIOR MYOCARDIAL INFARCTION , PROBABLY OLD [40+ ms Q WAVE AND/OR ST/T ABNORMALITY IN V3/V4] Compared to ECG 01/27/2021 04:18:06 Myocardial infarct finding now present Electronically Signed On 07-26-2021 1:25:38 CDT by Juliano Pedro M.D. [id number] f
--- NOTE | 2021-07-25 18:05 | XRR_ITS ---
PROCEDURE INFORMATION: Exam: XR Chest Exam date and time: 07/25/2021 6:05 PM Age: 41 years old Clinical indication: Sternal or substernal pain; Patient HX: Sternal chest pain x today; Additional info: Cp TECHNIQUE: Imaging protocol: XR of the chest. Views: 1 view. COMPARISON: CR XR chest 2V* [id number] 01/30/2021 2:18 PM FINDINGS: Lungs: Unremarkable. No consolidation. Pleural spaces: Unremarkable. No pleural effusion. No pneumothorax. Heart/Mediastinum: Unremarkable. No cardiomegaly. Bones/joints: Unremarkable. XR/XR chest 1V portable [id number] IMPRESSION: Lungs are clear Radiation Dose CTDIVOL = (mGy): DLP = (mGy-cm)
[2021-07-25 18:13] VITALS: BP 146/95; PULSE 86; RESP 16; TEMP 36.7; O2SAT 98; BMI 26.6
--- NOTE | 2021-07-25 19:38 | W.ED.CHESTPA ---
HPI - Chest Pain General: Chief Complaint: Chest Pain Stated Complaint: Chest Pain Time Seen by Provider: 07/25/21 19:37 Source: patient Mode of arrival: ambulatory Limitations: no limitations History of Present Illness: HPI narrative: 42-year-old female states started having some chest pain 2 hours ago. States since then her chest pressure type pain initially is a 5 out of 10 states it is a 1 out of 10 and improving currently. Denies any nausea or shortness of breath. She states she has been under some stress recently. Patient did have Tocco Subu's earlier this year had a cath done on January 26 that was normal. She denies any worsening improving factors. Associated symptoms: Deny abdominal pain, dyspnea, fever(s), nausea or vomiting Review of Systems Const: Denies: fever(s), chills, body aches or change in appetite Eyes: Denies: blurry vision or eye discomfort ENMT: Denies: throat pain or dental pain Card: Reports: chest pain Resp: Denies: dyspnea GI: Denies: abdominal pain, nausea, vomiting or diarrhea : Denies: dysuria Musc: Denies: neck pain or back pain Skin/Breast: Denies: rash Neuro: Denies: headache(s) Psych: Denies: depression Paddy/Lymph: Denies: easy bruising All/Imm: Denies: urticaria PFSH ED PFSH: Medical History Takotsubo cardiomyopathy Social History Smoking and tobacco status: never smoked Alcohol intake: never Physical Exam Const: COMMON NORMALS: no acute distress, patient oriented x3 and healthy appearing HENMT: COMMON NORMALS: normocephalic and atraumatic HEAD & SCALP: normocephalic and atraumatic Eye: COMMON NORMALS: Equal, round and reactive pupils present and EOMs intact bilaterally PUPIL: Yes Equal, round and reactive pupils present Neck/C-Spine: COMMON NORMALS: full ROM and supple Chest: COMMONS NORMALS: normal inspection of the chest and normal palpation of entire chest wall Resp: COMMON NORMALS: normal respiratory effort, No retractions, No use of accessory muscles and clear to auscultation bilaterally AUSCULTATION: clear to auscultation bilaterally Cardio: COMMON NORMALS: regular rate, regular rhythm and No murmurs present (Cardio) RATE: regular rate RHYTHM: regular rhythm GI: COMMON NORMALS: Normal to inspection, nondistended, normoactive bowel sounds present, Soft to palpation, non-tender and no masses PALPATION: Yes Soft to palpation Extremity: COMMON NORMALS: normal to inspection and full ROM Neuro: COMMON NORMALS: patient oriented x3, moves all extremities and no focal motor deficits Psych: COMMON NORMALS: mental status grossly normal, Normal thought process present and cooperative THOUGHT PROCESS: Normal thought process present Skin: COMMON NORMALS: no rashes or lesions noted and no wounds GENERAL SKIN EXAM: no rashes or lesions noted Course Vital Signs: Vital signs: Vital Signs Temperature 98.1 F 07/25/21 18:13 Pulse Rate 77 07/25/21 22:00 Respiratory Rate 13 07/25/21 22:00 Blood Pressure 155/96 07/25/21 22:00 Pulse Oximetry 98 07/25/21 18:13 MDM - Chest Pain MDM Narrative: Medical decision making narrative: Patient presents for chest pain 2-hour troponins negative her pain is since resolved. She had a cath this year that was normal. She has no signs of pulmonary embolism she is stable for discharge she is to follow-up PCP and return if worsening. Lab Data: Labs: Lab Results 07/25/21 07/25/21 07/25/21 20:10 20:10 20:10 WBC 13.1 10^3/uL H 10 ^3/uL (4.0-10.0) RBC 4.96 10^6/uL 10^6 /uL (4.1-5.3) Hgb 14.3 g/dL g/dL (11.5-15.3) Hct 42.7 % % (37.0-47.0) MCV 86.1 fl fl (81-99) MCH 28.8 pg pg (28.0-34.0) MCHC 33.5 g/dL g/dL (30.0-36.0) RDW 11.9 % L % (12.1-15.1) Plt Count 270 10^3/cmm 10^3 /cmm (130-400) MPV 11.2 fL H fL (7.4-10.4) Neut % (Auto) 83.2 % % Lymph % (Auto) 9.6 % % Henry % (Auto) 6.2 % % Eos % (Auto) 0.3 % % Baso % (Auto) 0.3 % % Neut # (Auto) 10.86 10^3/uL H 1 0^3/uL (1.8-7.7) Lymph # (Auto) 1.3 10^3/uL 10^3/ uL (0.8-4.8) Henry # (Auto) 0.8 10^3/uL 10^3/ uL (0.2-0.9) Eos # (Auto) 0.0 10^3/uL 10^3/ uL (0.0-0.8) Baso # (Auto) 0.0 10^3/uL 10^3/ uL (0.0-0.1) Nucleated RBC % (a uto) 0 % % Nucleated RBCs # 0.0 /100WBC /100W BC Sodium 134 mmol/L L mmol /L (136-145) Potassium 3.8 mmol/L mmol/L (3.5-5.1) Chloride 100 mmol/L mmol/L (98-107) Carbon Dioxide 25 mmol/L mmol/L (22-29) Anion Gap 12.8 (5-19) BUN 13 mg/dL mg/dL (6-20) Creatinine 0.5 mg/dL mg/dL (0.5-0.9) GFR Calculation 135.3 mL/min H mL /min (90-130) Glucose 104 mg/dL mg/dL (65-115) Calculated Osmolal ity 278 mOsm/kg L mOs m/kg (285-295) Calcium 8.6 mg/dL mg/dL (8.5-10.5) Total Bilirubin 0.4 mg/dL mg/dL (0.15-1.2) AST 22 U/L U/L (0-32) ALT 26 U/L U/L (0-33) Alkaline Phosphata se 82 IU/L IU/L (35-105) Troponin T Baselin e 12 ng/L H ng/L (0-10) Troponin T 120 Min [place] Delta Troponin T Total Protein 7.4 g/dL g/dL (6.6-8.7) Albumin 4.3 g/dL g/dL (3.5-5.2) Globulin 3.1 g/dL g/dL (1.3-4.6) 07/25/21 21:56 WBC RBC Hgb Hct MCV MCH MCHC RDW Plt Count MPV Neut % (Auto) Lymph % (Auto) Henry % (Auto) Eos % (Auto) Baso % (Auto) Neut # (Auto) Lymph # (Auto) Henry # (Auto) Eos # (Auto) Baso # (Auto) Nucleated RBC % (a uto) Nucleated RBCs # Sodium Potassium Chloride Carbon Dioxide Anion Gap BUN Creatinine GFR Calculation Glucose Calculated Osmolal ity Calcium Total Bilirubin AST ALT Alkaline Phosphata se Troponin T Baselin e Troponin T 120 Min [place] 21.84 ng/L H ng/L (0-10) Delta Troponin T 9.84 ABS# ABS# (0-10) Total Protein Albumin Globulin Imaging Data^: CXR: Attestation: I personally reviewed and interpreted this imaging study as follows: Radiologist's impression: [address] [address] XRay Report Signed Patient: Elvia Garcia Unit #: [id number] : 1980 Age/Sex: 41 / F ADM Date: 07/25/21 Loc: ER Room/Bed: Attending Dr: Ordering Provider/Ordering MD: Evangelist Vogt MD Date of Service: 07/25/21 Procedure(s): XR chest 1V portable [id number] Accession Number(s): [id number] Report Number: [id number] PROCEDURE INFORMATION: Exam: XR Chest Exam date and time: 07/25/2021 6:05 PM Age: 41 years old Clinical indication: Sternal or substernal pain; Patient HX: Sternal chest pain x today; Additional info: Cp TECHNIQUE: Imaging protocol: XR of the chest. Views: 1 view. COMPARISON: CR XR chest 2V* [id number] 01/30/2021 2:18 PM FINDINGS: Lungs: Unremarkable. No consolidation. Pleural spaces: Unremarkable. No pleural effusion. No pneumothorax. Heart/Mediastinum: Unremarkable. No cardiomegaly. Bones/joints: Unremarkable. XR/XR chest 1V portable [id number] IMPRESSION: Lungs are clear Radiation Dose CTDIVOL = (mGy): DLP = (mGy-cm) Dictated By: Sage Greco MD Signed By: Sage Greco MD Signed Date/Time: 07/25/211857 DD/ 04 EKG Data^: EKG 1: Attestation: I personally reviewed and interpreted this EKG as follows: EKG interpretation date: 07/25/21 EKG interpretation time: 18:53 Interpretation: nsr hr [address] or t wave abnormalities qrs 66 qtc 370 EKG 2: Attestation: I personally reviewed and interpreted this EKG as follows: EKG interpretation date: 07/25/21 EKG interpretation time: 21:30 Interpretation: nsr hr [address] or t wave abnormalities qrs 63 qtc 364 Discharge Plan Discharge Patient Disposition: Home Clinical Impression: Chest pain Qualifiers: Chest pain type: unspecified Qualified Code(s): R07.9 - Chest pain, unspecified Condition: Stable Prescriptions: No Action citalopram 10 mg tablet 10 mg PO DAILY RF: 0 metoprolol succinate 25 mg tablet extended release 24 hr 25 mg PO DAILY Qty: 30 RF: 0 isosorbide mononitrate 20 mg Tablet 20 mg PO BID Qty: 60 RF: 3 aspirin 81 mg Tablet,Delayed Release (Dr/Ec) 81 mg PO DAILY Qty: 90 RF: 3 atorvastatin 10 mg tablet 10 mg PO DAILY Qty: 30 RF: 4 lisinopril 2.5 mg tablet 2.5 mg PO DAILY Qty: 30 RF: 3 clopidogrel 75 mg tablet 75 mg PO DAILY Qty: 90 RF: 3 Discharge Orders: Discharge ED (Routine); Ordered 07/25/21 Ordered By: Evangelist Vogt Referrals: Navid Sarabia MD [Primary Care Provider] - 1-3 days Discharge Diet: Advance as tolerated Discharge Activity: Resume usual activity Patient Instructions: Chest Pain (ED) Coding Level of Care Code ED Computer Console Operator for Chg Fwd Exam Comprehensive
--- NOTE | 2021-07-25 20:05 | ECG_ITS ---
[facility] Test Date: 2021-07-25 Pat Name: Elvia Garcia Department: Room: Gender: Female Wait Staff: : 1980 Requested By: Evangelist Vogt Order Number: [id number] Tra MD: Juliano Pedro M.D. Measurements Intervals [place] Rate: 75 P: 58 KS: 187 QRS: 27 QRSD: 63 T: 14 QT: 335 QTc: 376 Interpretive Statements SINUS RHYTHM POSSIBLE LEFT ATRIAL ENLARGEMENT [-0.1mV P-WAVE IN V1/V2] LOW QRS VOLTAGE IN PRECORDIAL LEADS [QRS DEFLECTION < 1.0 mV IN CHEST LEADS] POSSIBLE ANTERIOR MYOCARDIAL INFARCTION , PROBABLY OLD [30 ms Q WAVE IN V3/V4, OR R < 0.2 mV IN V4] Compared to ECG 01/27/2021 04:18:06 Myocardial infarct finding now present Electronically Signed On 07-26-2021 1:29:28 CDT by Juliano Pedro M.D. [id number]
[2021-07-25] MEDS: nitroglycerin 0.4 mg sublingual Tablet SUBLINGUAL (20:17)
[2021-07-25] MEDS: aspirin 81 mg Chew Tablet 324 MG PO (20:18)
[2021-07-25 20:23] LABS: Basophils % 0.3 %; Eosinophils % 0.3 %; Hematocrit 42.7 % (37.0-47.0); Hemoglobin 14.3 g/dL (11.5-15.3); Lymphocytes # 1.3 10^3/uL (0.8-4.8); Lymphocytes % 9.6 %; Mean Corpuscular HGB Conc 33.5 g/dL (30.0-36.0); Mean Corpuscular Hemoglobin 28.8 pg (28.0-34.0); Mean Corpuscular Volume 86.1 fl (81-99); Mean Platelet Volume 11.2 fL (7.4-10.4); Monocytes # 0.8 10^3/uL (0.2-0.9); Monocytes % 6.2 %; Neutrophils # 10.86 10^3/uL (1.8-7.7); Neutrophils % 83.2 %; Nucleated Red Blood Cells % 0 %; Platelet Count 270 10^3/cmm (130-400); Red Blood Count 4.96 10^6/uL (4.1-5.3); Red Cell Distribution Width 11.9 % (12.1-15.1); White Blood Count 13.1 10^3/uL (4.0-10.0)
[2021-07-25 20:31] VITALS: PULSE 75; RESP 18
[2021-07-25 20:32] VITALS: BP 163/93
[2021-07-25 20:48] LABS: Troponin(5th) Baseline 12 ng/L (0-10)
[2021-07-25 20:50] LABS: Alanine Aminotransferase 26 U/L (0-33); Albumin Level 4.3 g/dL (3.5-5.2); Alkaline Phosphatase 82 IU/L (35-105); Anion Gap 12.8 (5-19); Aspartate Amino Transferase 22 U/L (0-32); Blood Urea Nitrogen 13 mg/dL (6-20); Calcium 8.6 mg/dL (8.5-10.5); Carbon Dioxide 25 mmol/L (22-29); Chloride 100 mmol/L (98-107); Globulin 3.1 g/dL (1.3-4.6); Glomerular Filtration Rate 135.3 mL/min (90-130); Glucose 104 mg/dL (65-115); Osmolality Calculated 278 mOsm/kg (285-295); Potassium 3.8 mmol/L (3.5-5.1); Sodium 134 mmol/L (136-145); Total Bilirubin 0.4 mg/dL (0.15-1.2); Total Protein 7.4 g/dL (6.6-8.7)
[2021-07-25 21:15] VITALS: BP 161/94; PULSE 73; RESP 15
[2021-07-25 22:00] VITALS: BP 155/96; PULSE 77; RESP 13
[2021-07-25 22:21] LABS: Troponin 5 2HR 21.84 ng/L (0-10); Troponin 5 2HR Delta 9.84 ABS# (0-10)
[2021-07-25 23:01] VITALS: BP 135/99; PULSE 73; RESP 20; O2SAT 98
== END 2021-07-25 23:01 | disposition home or self-care (01) ==
PROVIDERS: Emergency Provider Emergency Medicine; PCP Family Medicine
DX: R07.9 Chest pain, unspecified (principal); Z79.82 Long term (current) use of aspirin; Z79.02 Long term (current) use of antithrombotics/antiplatelets
CPT/HCPCS: 71045; 80053; 84484; 85025; 93005; 99283

== ENCOUNTER → 2023-06-16 16:23 | Outpatient (BNVA) | payer OTHER, SELFPAY | PROVIDERS: PCP Family Medicine; Visit Provider Family Medicine | DX: Z00.00 Encounter for general adult medical examination without abnormal findings (principal); Z78.9 Other specified health status; Z01.419 Encounter for gynecological examination (general) (routine) without abnormal findings | CPT/HCPCS: 87624 ==

== ENCOUNTER → 2023-06-17 08:37 | Outpatient (BNVA) | payer OTHER, SELFPAY | PROVIDERS: PCP Family Medicine; Visit Provider Family Medicine | DX: Z00.00 Encounter for general adult medical examination without abnormal findings (principal) | CPT/HCPCS: 80053; 80061 ==

== ENCOUNTER 2024-06-21 14:11 | Outpatient (CLI) | payer OTHER, SELFPAY ==
--- NOTE | 2024-06-21 14:30 | MM_ITS ---
WS: [id number] BILATERAL SCREENING DIGITAL TOMOSYNTHESIS MAMMOGRAM WITH CAD HISTORY: screening COMPARISON: 11/07/2020, 10/30/2020 Bilateral CC and MLO views with tomosynthesis and synthetic mammography submitted. Computer aided det ection analyzed. Breast composition: There are scattered areas of fibroglandular density. No suspicious masses, microc alcifications or architectural distortion. Benign calcifications in each breast. MM/MM scr BI tomosynthesis [id number] IMPRESSION: BI-RADS: 2 - Benign. FOLLOW UP: 1 Year Follow-up
== END 2024-06-21 14:12 | disposition home or self-care (01) ==
LOC: RAD 14:11
PROVIDERS: PCP Family Medicine; Visit Provider Family Medicine
DX: Z12.31 Encounter for screening mammogram for malignant neoplasm of breast (principal); R92.323 Mammographic fibroglandular density, bilateral breasts; R92.1 Mammographic calcification found on diagnostic imaging of breast
CPT/HCPCS: 77063; 77067

== ENCOUNTER 2024-08-23 08:32 | Day surgery (SDC) | payer OTHER, SELFPAY ==
[2024-08-23 08:51] VITALS: BP 138/95; PULSE 98; RESP 18; TEMP 36.5; O2SAT 97; BMI 29.2
[2024-08-23] MEDS: sodium chloride 0.9% 1,000 ML 30 ML IV (08:58)
--- NOTE | 2024-08-23 09:23 | ANES.PREANE2 ---
Pre-Anesthetic Assessment Height/Weight: Height 1.63 m Weight 77.111 kg Temp Pulse Resp BP Pulse Ox O2 Del Method 97.7 F 98 18 138/95 97 Room Air 08/23/24 08:51 08/23/24 08:51 08/23/24 08:51 08/23/24 08:51 08/23/24 08:51 08/23/24 08:51 Preop Diagnosis: screening Operation Date: 08/23/24 09:30 Proposed Procedures p Colonoscopy - 61053,G0121,Z12.11(Not Applicable) - Bala Fuentes MD Familial anesthetic complications: none Was Beta Dev taken within 24 hours: N/A Was Clonidine taken within 24 hours: N/A Last intake: Intake Last Liquid Date 08/22/24 Last Liquid Time 20:00 Last Solid Date 08/21/24 Last Solid Time 18:00 Social No alcohol and No tobacco Exam alert, oriented x 3 and clear to auscultation bilaterally Airway Mallampati: Class II Dentition: full History/ROS No significant history except as noted Pulmonary None reported CV/HEM Hx of cardiomyopathy- pt states this has resolved and she has no symptoms. METS >4 None reported Hepatic None reported GI None reported Metabolic None reported Musc/skel None reported Neuropsych Anxiety Anesthetic Plan ASA status: 2 Anesthesia: Anesthesia Evaluation and MAC Risk of > 500 ml blood loss (7ml/kg in children): No Medications/Allergies Home Medications Medication Instructions Recorded Confirmed Last Taken Type alprazolam 0.25 mg tablet 0.25 mg PO TID PRN anxiety #60 tabs 05/08/23 08/23/24 08/23/24 Rx 0700 cetirizine 5 mg-pseudoephedrine ER 1 tab PO Q12H PRN allergy symptoms 04/28/24 08/19/24 Unknown Rx 120 mg tablet,extended release,12hr #60 tabs amlodipine 2.5 mg tablet 2.5 mg PO DAILY 08/19/24 08/23/24 08/23/24 History 0700 escitalopram oxalate 10 mg tablet 10 mg PO DAILY 08/19/24 08/19/24 08/19/24 History (Lexapro) Allergies Allergy/AdvReac Type Severity Reaction Status Date / Time No Known Allergies Allergy Verified 08/19/24 08:05 Current Medications Generic Name Dose Route Start Last Admin Trade Name Freq PRN Reason Stop Dose Admin Sodium Chloride 1,000 mls @ 30 mls/hr 08/23/24 08:45 08/23/24 08:58 Sodium Chloride 0.9% IV 08/24/24 08:44 30 mls/hr .Q24H RD Administration PFSH Anesthesia Medical History Takotsubo cardiomyopathy Family History (Updated 06/24/24 @ 07:55 by MINERVA Ge) Father Cancer esophageal Social History Smoking and tobacco/nicotine status: never used tobacco/nicotine Alcohol intake: never Substance/Drug Use: never Data Anesthesia Cardiac Studies: Echocardiogram Limited Views 04/16/21 Echocardiogram Ultrasound 01/27/21
--- NOTE | 2024-08-23 09:26 | W.PM.OPSFHP ---
Same Day Surgery H&P Indication for Procedure/HPI DATE OF PROCEDURE: August 23, 2024 CHIEF COMPLAINT/INDICATIONFOR SURGICAL PROCEDURE: screening colonoscopy PREOP DIAGNOSIS: screening PLANNED PROCEDURE: Operation Date: 08/23/24 09:30 Proposed Procedures p Colonoscopy - 41626,G0121,Z12.11(Not Applicable) - Bala Fuentes MD Medications/Allergies* Home Medications Medication Instructions Recorded Confirmed Type amlodipine 2.5 mg tablet 2.5 mg PO DAILY 08/19/24 08/23/24 History escitalopram oxalate 10 mg tablet 10 mg PO DAILY 08/19/24 08/19/24 History (Lexapro) Allergies/Adverse Reactions Allergy/AdvReac Type Severity Reaction Status Date / Time No Known Allergies Allergy Verified 08/19/24 08:05 Current Medications: Generic Name Dose Route Start Last Admin Trade Name Freq PRN Reason Stop Dose Admin Sodium Chloride 1,000 mls @ 30 mls/hr 08/23/24 08:45 08/23/24 08:58 Sodium Chloride 0.9% IV 08/24/24 08:44 30 mls/hr .Q24H RD Administration Pertinent History/Comorbid Conditions* Medical History (Updated 06/07/24 @ 15:13 by Navid Sarabia MD) Takotsubo cardiomyopathy Family History (Updated 06/24/24 @ 07:55 by MINERVA Ge) Cancer Father esophageal Social History Smoking and tobacco/nicotine status: never used tobacco/nicotine Alcohol intake: never Substance/Drug Use: never Pertinent Exam Findings alert, oriented x 3, clear to auscultation bilaterally, regular rate & rhythm and procedure specific exam findings Abdomen soft, nt, nd Recommendations Surgery/Procedure today Coding Level of Care Code Acute Code for Chg Fwd
[2024-08-23 09:53] VITALS: BP 119/81; PULSE 77; RESP 12; TEMP 36.1; O2SAT 96
[2024-08-23 09:59] LABS: OR HCG Qualitative Urine Negative (Negative)
[2024-08-23 10:03] VITALS: BP 112/77; PULSE 76; RESP 16; O2SAT 93
--- NOTE | 2024-08-23 10:35 | ANE.PACU2 ---
Inpatient post-anesthesia follow up: Airway intact: Yes Vital signs: Temperature 97.0 F Pulse Rate 76 Respiratory Rate 16 Blood Pressure 112/77 Pulse Oximetry 93 Oxygen Delivery Me thod Room Air Oxygen Flow Rate Fraction of Inspir ed Oxygen Hydration adequate: Yes Nausea and vomiting: No Pain level: 1 Mental status: Baseline
== END 2024-08-23 10:36 | disposition home or self-care (01) ==
PROVIDERS: Anesthesiology; PCP Family Medicine; Visit Provider Student in an Organized Health Care Education/Training Program
PROC: 0DJD8ZZ Inspection of Lower Intestinal Tract, Via Natural or Artificial Opening Endoscopic (ICD-10-PCS; CPT 45378; principal; 2024-08-23 09:30)
DX: Z12.11 Encounter for screening for malignant neoplasm of colon (principal); D12.4 Benign neoplasm of descending colon; F41.9 Anxiety disorder, unspecified
CPT/HCPCS: 45385; 81025; 88305; J2704; J7030

== ENCOUNTER → 2024-12-24 07:41 | Outpatient (BNVA) | payer OTHER, SELFPAY | PROVIDERS: PCP Family Medicine; Visit Provider Family Medicine Adult Medicine | DX: R39.9 Unspecified symptoms and signs involving the genitourinary system (principal) | CPT/HCPCS: 81000 ==

== ENCOUNTER → 2024-12-27 15:42 | Outpatient (BNVA) | payer OTHER, SELFPAY | PROVIDERS: PCP Family Medicine; Visit Provider Family Medicine | DX: R30.0 Dysuria (principal); N39.0 Urinary tract infection, site not specified | CPT/HCPCS: 81000; 87086 ==

== ENCOUNTER → 2025-02-24 10:49 | Outpatient (BNVA) | payer OTHER, SELFPAY | PROVIDERS: PCP Family Medicine; Visit Provider Podiatrist Foot & Ankle Surgery | DX: M79.671 Pain in right foot (principal); M79.672 Pain in left foot; S99.922A Unspecified injury of left foot, initial encounter; X58.XXXA Exposure to other specified factors, initial encounter; Q66.71 Congenital pes cavus, right foot; Q66.72 Congenital pes cavus, left foot | CPT/HCPCS: 73630 ==

== ENCOUNTER → 2025-04-05 11:08 | Outpatient (BNVA) | payer OTHER, SELFPAY | PROVIDERS: PCP Family Medicine; Visit Provider Family Medicine | DX: R10.2 Pelvic and perineal pain (principal) | CPT/HCPCS: 81000 ==

== ENCOUNTER → 2025-04-06 12:44 | Outpatient (BNVA) | payer OTHER, SELFPAY | PROVIDERS: PCP Family Medicine; Visit Provider Family Medicine | DX: R10.2 Pelvic and perineal pain (principal) | CPT/HCPCS: 87086 ==

== ENCOUNTER 2025-06-20 14:03 | Outpatient (CLI) | payer OTHER, SELFPAY ==
--- NOTE | 2025-06-20 14:20 | MM_ITS ---
WS: [id number] BILATERAL 3D TOMOSYNTHESIS DIGITAL SCREENING MAMMOGRAPHY WITH CAD CLINICAL INFORMATION: screening HISTORY: Screening mammogram. No current complaints. History of breast reduction COMPARISON: 2023 TECHNIQUE: Bilateral CC and MLO views. FINDINGS: The breasts are composed of heterogeneous fibroglandular density tissue, which can limit the detection of small underlying mass lesions. Irregular asymmetric density anterior RIGHT breast previously evaluated in 2020 but changed in configuration compared to previous studies. Recommend RIGHT breast diagnostic mammography and ultrasound if persistent. Unremarkable LEFT breast. MM/MM [facility] tomosynthesis [id number] IMPRESSION: DENSITY: The breasts are heterogeneously dense, which may obscure small masses. BI-RADS: 0 - Incomplete: Need additional imaging evaluation FOLLOW UP: Need Additional Imaging Recommend RIGHT breast diagnostic mammography and ultrasound if persistent
== END 2025-06-20 14:04 | disposition home or self-care (01) ==
PROVIDERS: PCP Family Medicine; Visit Provider Family Medicine
DX: Z12.31 Encounter for screening mammogram for malignant neoplasm of breast (principal); Z00.00 Encounter for general adult medical examination without abnormal findings; R92.333 Mammographic heterogeneous density, bilateral breasts; R92.323 Mammographic fibroglandular density, bilateral breasts; N64.89 Other specified disorders of breast
CPT/HCPCS: 77063; 77067

== ENCOUNTER 2025-07-14 10:59 | Outpatient (CLI) | payer OTHER, SELFPAY ==
--- NOTE | 2025-07-14 11:05 | US_ITS ---
WS: [id number] RIGHT 3D TOMOSYNTHESIS DIGITAL MAMMOGRAPHY WITH CAD CLINICAL INFORMATION: abnormal mammogram HISTORY: Additional views COMPARISON: 2024 TECHNIQUE: 3 views of the right breast were obtained. FINDINGS: The right breast is composed of heterogeneous fibroglandular density tissue, which can limit the detection of small underlying mass lesions. Again seen is the irregular asymmetric density anterior RIGHT breast previously described. This is persistent on the spot compression views and ultrasound is pending. ULTRASOUND BREAST RIGHT TECHNIQUE: Ultrasound right breast focused area of concern. CLINICAL INFORMATION: abnormal mammogram FINDINGS: Ultrasound anterior RIGHT breast. Dense underlying parenchymal tissue with fibrocystic change. No cystic or solid lesions. No suspicious lesions to target for biopsy. Recommend return to annual screening mammography US/US breast RT limited* [id number] IMPRESSION: DENSITY: The breasts are heterogeneously dense, which may obscure small masses. BI-RADS: 2 - Benign FOLLOW UP: 1 Year Follow-up Recommend return to annual screening mammography.
--- NOTE | 2025-07-14 11:15 | MM_ITS ---
WS: [id number] RIGHT 3D TOMOSYNTHESIS DIGITAL MAMMOGRAPHY WITH CAD CLINICAL INFORMATION: abnormal mammogram HISTORY: Additional views COMPARISON: 2024 TECHNIQUE: 3 views of the right breast were obtained. FINDINGS: The right breast is composed of heterogeneous fibroglandular density tissue, which can limit the detection of small underlying mass lesions. Again seen is the irregular asymmetric density anterior RIGHT breast previously described. This is persistent on the spot compression views and ultrasound is pending. ULTRASOUND BREAST RIGHT TECHNIQUE: Ultrasound right breast focused area of concern. CLINICAL INFORMATION: abnormal mammogram FINDINGS: Ultrasound anterior RIGHT breast. Dense underlying parenchymal tissue with fibrocystic change. No cystic or solid lesions. No suspicious lesions to target for biopsy. Recommend return to annual screening mammography MM/MM diag RT tomosynthesis [id number] IMPRESSION: DENSITY: The breasts are heterogeneously dense, which may obscure small masses. BI-RADS: 2 - Benign FOLLOW UP: 1 Year Follow-up Recommend return to annual screening mammography.
== END 2025-07-14 11:00 | disposition home or self-care (01) ==
LOC: RAD 11:00
PROVIDERS: PCP Family Medicine; Visit Provider Family Medicine
DX: R92.8 Other abnormal and inconclusive findings on diagnostic imaging of breast (principal); R92.331 Mammographic heterogeneous density, right breast; R92.321 Mammographic fibroglandular density, right breast; N64.89 Other specified disorders of breast
CPT/HCPCS: 76642; 77061; G0279